=== PATIENT | female | born 1980 | race Caucasian/White ===

== ENCOUNTER 2021-09-19 18:12 | Emergency (ER) | payer MEDICAID, SELFPAY ==
[2021-09-19 18:41] VITALS: BP 119/77; PULSE 82; RESP 16; TEMP 36.9; O2SAT 100; BMI 21.6
[2021-09-19 19:14] LABS: Basophils % 0.3 %; Eosinophils # 0.1 10^3/uL (0.0-0.8); Eosinophils % 1.8 %; Hematocrit 37.5 % (37.0-47.0); Hemoglobin 12.8 g/dL (11.5-15.3); Lymphocytes # 2.2 10^3/uL (0.8-4.8); Lymphocytes % 29.7 %; Mean Corpuscular HGB Conc 34.1 g/dL (30.0-36.0); Mean Corpuscular Hemoglobin 29.3 pg (28.0-34.0); Mean Corpuscular Volume 85.8 fl (81-99); Mean Platelet Volume 11.1 fL (7.4-10.4); Monocytes # 0.5 10^3/uL (0.2-0.9); Monocytes % 6.8 %; Neutrophils # 4.44 10^3/uL (1.8-7.7); Neutrophils % 61.1 %; Nucleated Red Blood Cells % 0 %; Platelet Count 173 10^3/cmm (130-400); Red Blood Count 4.37 10^6/uL (4.1-5.3); Red Cell Distribution Width 13.2 % (12.1-15.1); White Blood Count 7.3 10^3/uL (4.0-10.0)
[2021-09-19 19:20] LABS: Add Urine Microscopic? NO; Charge for UA Resulting for Rev
[2021-09-19 19:33] LABS: HCG, Serum Qual Negative (Negative)
[2021-09-19 19:36] LABS: Bilirubin Urine Neg (Negative); Blood Urine Neg (Negative); Glucose Urine UA Norm (Normal); Ketones Urine Negative (Negative); Leukocyte Esterase Urine Negative (Negative); Nitrate Urine Negative (Negative); Protein Urine Neg (Negative); Specific Gravity, Urine 1.025 (1.005-1.030); Urine Appearance Clear (CLEAR); Urine Color Yellow (Yellow); Urobilinogen Urine 1 mg/dL (Negative); pH Urine 5 (5-7)
[2021-09-19 19:54] LABS: Alanine Aminotransferase 14 U/L (0-33); Albumin Level 4.3 g/dL (3.5-5.2); Alkaline Phosphatase 44 IU/L (35-105); Anion Gap 13.5 (5-19); Aspartate Amino Transferase 12 U/L (0-32); Blood Urea Nitrogen 16 mg/dL (6-20); Calcium 9.2 mg/dL (8.5-10.5); Carbon Dioxide 22 mmol/L (22-29); Chloride 105 mmol/L (98-107); Globulin 2.3 g/dL (1.3-4.6); Glomerular Filtration Rate 111.3 mL/min (90-130); Glucose 90 mg/dL (65-115); Lipase 44 U/L (13-60); Osmolality Calculated 283 mOsm/kg (285-295); Potassium 4.5 mmol/L (3.5-5.1); Sodium 136 mmol/L (136-145); Total Bilirubin 0.2 mg/dL (0.15-1.2); Total Protein 6.6 g/dL (6.6-8.7)
--- NOTE | 2021-09-19 20:27 | W.ED.ABDPA2 ---
HPI - Abdominal Pain General: Chief Complaint: Abdominal Pain Stated Complaint: Abd Pain Time Seen by Provider: 09/19/21 20:18 Source: patient Mode of arrival: ambulatory Limitations: no limitations History of Present Illness: HPI narrative: 41-year-old female states she been having epigastric abdominal pain for last 4 to 5 days. States that its intermittent nature does not notice anything that makes it worse or better. She states it is currently a 4 out of 10 denies any worsening with food states she has had this issue in the past never was seen she does not take any medicine no history of reflux she knows of no history of gallbladder issues. She denies any vomiting or diarrhea. Associated Symptoms: Denies chills, dysuria, fever(s) and vomiting Related Data: Date of Last Menstrual Period: 09/05/21 Review of Systems Const: Denies: fever(s), chills, body aches or change in appetite Eyes: Denies: blurry vision or eye discomfort ENMT: Denies: throat pain or dental pain Card: Denies: chest pain Resp: Denies: dyspnea GI: Reports: abdominal pain; Denies: vomiting : Denies: dysuria Musc: Denies: neck pain or back pain Skin/Breast: Denies: rash Neuro: Denies: headache(s) Psych: Denies: depression Anthony/Lymph: Denies: easy bruising All/Imm: Denies: urticaria [facility] Female Reproductive History: Date of last menstrual period: 09/05/21 Physical Exam Const: COMMON NORMALS: no acute distress, patient oriented x3 and healthy appearing HENMT: COMMON NORMALS: normocephalic and atraumatic HEAD & SCALP: normocephalic and atraumatic Eye: COMMON NORMALS: Equal, round and reactive pupils present and EOMs intact bilaterally PUPIL: Yes Equal, round and reactive pupils present Neck/C-Spine: COMMON NORMALS: full ROM and supple Chest: COMMONS NORMALS: normal inspection of the chest and normal palpation of entire chest wall Resp: COMMON NORMALS: normal respiratory effort, No retractions, No use of accessory muscles and clear to auscultation bilaterally AUSCULTATION: clear to auscultation bilaterally Cardio: COMMON NORMALS: regular rate, regular rhythm and No murmurs present (Cardio) RATE: regular rate RHYTHM: regular rhythm GI: COMMON NORMALS: Normal to inspection, nondistended, normoactive bowel sounds present, Soft to palpation and no masses PALPATION: Yes Soft to palpation Extremity: COMMON NORMALS: normal to inspection and full ROM Neuro: COMMON NORMALS: patient oriented x3, moves all extremities and no focal motor deficits Psych: COMMON NORMALS: mental status grossly normal, Normal thought process present and cooperative THOUGHT PROCESS: Normal thought process present Skin: COMMON NORMALS: no rashes or lesions noted and no wounds GENERAL SKIN EXAM: no rashes or lesions noted Course Vital Signs: Vital signs: Vital Signs Temperature 98.4 F 09/19/21 18:41 Pulse Rate 82 09/19/21 18:41 Respiratory Rate 16 09/19/21 18:41 Blood Pressure 119/77 09/19/21 18:41 Pulse Oximetry 100 09/19/21 18:41 MDM - Abdominal Pain MDM Narrative: Medical decision making narrative: Patient presents here with abdominal pain patient's ultrasound of her gallbladder here was normal exam here at discharge is benign she has no signs of acute surgical abdomen blood work is all normal as well. We will start her on Protonix she is to follow-up with the primary care doctor inform if she has any worsening pain she is return to the ER she understands and agrees to the plan. Lab Data: Labs: Lab Results 09/19/21 09/19/21 09/19/21 18:45 18:45 18:45 WBC 7.3 10^3/uL 10^3/ uL (4.0-10.0) RBC 4.37 10^6/uL 10^6 /uL (4.1-5.3) Hgb 12.8 g/dL g/dL (11.5-15.3) Hct 37.5 % % (37.0-47.0) MCV 85.8 fl fl (81-99) MCH 29.3 pg pg (28.0-34.0) MCHC 34.1 g/dL g/dL (30.0-36.0) RDW 13.2 % % (12.1-15.1) Plt Count 173 10^3/cmm 10^3 /cmm (130-400) MPV 11.1 fL H fL (7.4-10.4) Neut % (Auto) 61.1 % % Lymph % (Auto) 29.7 % % Beckham % (Auto) 6.8 % % Eos % (Auto) 1.8 % % Baso % (Auto) 0.3 % % Neut # (Auto) 4.44 10^3/uL 10^3 /uL (1.8-7.7) Lymph # (Auto) 2.2 10^3/uL 10^3/ uL (0.8-4.8) Beckham # (Auto) 0.5 10^3/uL 10^3/ uL (0.2-0.9) Eos # (Auto) 0.1 10^3/uL 10^3/ uL (0.0-0.8) Baso # (Auto) 0.0 10^3/uL 10^3/ uL (0.0-0.1) Nucleated RBC % (a uto) 0 % % Nucleated RBCs # 0.0 /100WBC /100W BC Sodium 136 mmol/L mmol/L (136-145) Potassium 4.5 mmol/L mmol/L (3.5-5.1) Chloride 105 mmol/L mmol/L (98-107) Carbon Dioxide 22 mmol/L mmol/L (22-29) Anion Gap 13.5 (5-19) BUN 16 mg/dL mg/dL (6-20) Creatinine 0.6 mg/dL mg/dL (0.5-0.9) GFR Calculation 111.3 mL/min mL/m in (90-130) Glucose 90 mg/dL mg/dL (65-115) Calculated Osmolal ity 283 mOsm/kg L mOs m/kg (285-295) Calcium 9.2 mg/dL mg/dL (8.5-10.5) Total Bilirubin 0.2 mg/dL mg/dL (0.15-1.2) AST 12 U/L U/L (0-32) ALT 14 U/L U/L (0-33) Alkaline Phosphata se 44 IU/L IU/L (35-105) Total Protein 6.6 g/dL g/dL (6.6-8.7) Albumin 4.3 g/dL g/dL (3.5-5.2) Globulin 2.3 g/dL g/dL (1.3-4.6) Lipase 44 U/L U/L (13-60) HCG, Qual Negative (Negative) Urine Color Urine Appearance Urine pH Ur Specific Gravit y Urine Protein Urine Glucose (UA) Urine Ketones Urine Blood Urine Nitrate Urine Bilirubin Urine Urobilinogen Ur Leukocyte Bren ase 09/19/21 18:45 WBC RBC Hgb Hct MCV MCH MCHC RDW Plt Count MPV Neut % (Auto) Lymph % (Auto) Beckham % (Auto) Eos % (Auto) Baso % (Auto) Neut # (Auto) Lymph # (Auto) Beckham # (Auto) Eos # (Auto) Baso # (Auto) Nucleated RBC % (a uto) Nucleated RBCs # Sodium Potassium Chloride Carbon Dioxide Anion Gap BUN Creatinine GFR Calculation Glucose Calculated Osmolal ity Calcium Total Bilirubin AST ALT Alkaline Phosphata se Total Protein Albumin Globulin Lipase HCG, Qual Urine Color Yellow (Yellow) Urine Appearance Clear (CLEAR) Urine pH 5 (5-7) Ur Specific Gravit y 1.025 (1.005-1.030) Urine Protein Neg (Negative) Urine Glucose (UA) Norm (Normal) Urine Ketones Negative (Negative) Urine Blood Neg (Negative) Urine Nitrate Negative (Negative) Urine Bilirubin Neg (Negative) Urine Urobilinogen 1 mg/dL H mg/dL (Negative) Ur Leukocyte Bren ase Negative (Negative) Imaging Data ^: US: Attestation: I personally reviewed and interpreted this imaging study as follows: Radiologist's impression: [address] [address] Ultrasound Report Signed Patient: Kalin Penaloza I Unit #: [id number] : 1980 Age/Sex: 41 / F ADM Date: 09/19/21 Loc: ER Room/Bed: Attending Dr: Ordering Provider/Ordering MD: Dg Zepeda MD Date of Service: 09/19/21 Procedure(s): US gall bladder 15251 Accession Number(s): [id number] Report Number: [id number] PROCEDURE INFORMATION: Exam: US Abdomen, Limited; Right Upper Quadrant Exam date and time: 09/19/2021 8:26 PM Age: 41 years old Clinical indication: Abdominal pain; Additional info: Abd pain TECHNIQUE: Imaging protocol: US abdomen. Real time ultrasound with image documentation. Limited exam focused on the right upper quadrant. COMPARISON: No relevant prior studies available. FINDINGS: Liver: Normal. No masses. Gallbladder: Normal. No gallstones. There is no gallbladder wall thickening. Common bile duct: Normal. No stones. No dilation. Pancreas: Visualized pancreas is unremarkable. Right kidney: Normal. No mass. No hydronephrosis. US/US gall bladder 00303 IMPRESSION: No acute findings. Radiation Dose CTDIVOL = (mGy): DLP = (mGy-cm) Dictated By: Neno Falcon MD Signed By: Neno Falcon MD Signed Date/Time: 09/19/212226 DD/ 25 Discharge Plan Discharge Patient Disposition: Home Clinical Impression: Abdominal pain Qualifiers: Abdominal location: epigastric Qualified Code(s): R10.13 - Epigastric pain Condition: Stable Prescriptions: New Protonix 40 mg tablet,delayed release (DR/EC) 40 mg PO DAILY Qty: 60 RF: 0 Discharge Orders: Discharge ED (Routine); Ordered 09/19/21 Ordered By: Dg Zepeda Discharge Diet: Advance as tolerated Discharge Activity: Resume usual activity Patient Instructions: Abdominal Pain (ED) Coding Level of Care Code ED Pyrotechnic Mixer for Chg Fwd Exam Comprehensive
[2021-09-19] MEDS: ondansetron 2 mg/ML SDV 2 mL 4 MG IVP (20:40)
[2021-09-19] MEDS: sodium chloride 0.9% 1,000 ML 999 ML IV (20:40)
[2021-09-19 22:41] VITALS: BP 106/67; PULSE 74; RESP 18; O2SAT 99
--- NOTE | 2021-09-20 12:10 | DCPLANNER ---
manager universal had message to speak with patient about getting a primary care physician. manager universal called and spoke with patient, returned case inspector gave patient different options of physicians that are taking new patients. manager universal also spoke to patient about Dr. Vora, and Dr. Riley at [facility]. Patient wrote down some names and wants to research the physicians. If patient would like returned case inspector to help patient get a an appointment with a physician, patient will call returned case inspector.
== END 2021-09-19 22:42 | disposition home or self-care (01) ==
PROVIDERS: Emergency Provider Emergency Medicine
DX: R10.13 Epigastric pain (principal)
CPT/HCPCS: 76705; 80053; 81003; 83690; 84703; 85025; 96361; 96374; 99283; J2405; J7030